=== PATIENT | female | born 2000 | race Caucasian/White ===

== ENCOUNTER 2020-05-21 13:58 | Emergency (ER) | payer SELFPAY ==
[~2020-05-21] VITALS: Ht 170.2 cm; Wt 127.0 kg
[2020-05-21 17:54] VITALS: BP 117/86
--- NOTE | 2020-05-23 10:13 | NUR ---
Patient called requesting Covid results. Advised that the Covid test was negative. Encouraged patient to continue practicing Covid prevention. Patient verbalized understanding.
== END 2020-05-21 17:45 | disposition home or self-care (01) | DRG 103 ==
LOC: ED 13:58
DX: R51 Headache (principal); F17.210 Nicotine dependence, cigarettes, uncomplicated; Z20.828 Contact with and (suspected) exposure to other viral communicable diseases